=== PATIENT | female | born 1990 | race Caucasian/White ===

== ENCOUNTER 2018-01-05 21:34 | Emergency (ER) | payer SELFPAY ==
[2018-01-05 22:05] VITALS: TEMP 99; O2SAT 97
--- NOTE | 2018-01-05 22:33 | RAD ---
EXAM DESCRIPTION: Wrist,Left 3 Views CLINICAL HISTORY: left wrist injury COMPARISON: None FINDINGS: 3 view(s) submitted. No definite fracture or dislocation is identified. However there is irregularity of the distal radius concerning for subtle fracture. If pain persists I recommend repeat in 7-10 days. Bone marrow attenuation is unremarkable. No radiopaque foreign body is identified. IMPRESSION: Findings are concerning for probable distal radius fracture, poorly seen. Electronically signed by: Krishna Engel 01/05/2018 10:32 PM CDT
[2018-01-05] MEDS ORDERED: ACETAMINOPHEN W/COD #3 TAB (ER Disp) PO ONE (22:42)
[2018-01-05] MEDS ORDERED: ACETAMINOPHEN W/COD #3 TAB 1 EA TAB PO ONE (22:44)
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
[2018-01-05 23:16] VITALS: BP 134/80
== END 2018-01-05 23:13 | disposition home or self-care (01) ==
LOC: ER 21:34
DX: S52.502A Unspecified fracture of the lower end of left radius, initial encounter for closed fracture (principal); X58.XXXA Exposure to other specified factors, initial encounter; Y93.89 Activity, other specified; Y92.9 Unspecified place or not applicable